=== PATIENT | male | born 1955 | race Caucasian/White ===

== ENCOUNTER 2019-04-11 09:30 | Inpatient (IN) | payer BC, OTHER ==
--- NOTE | 2019-04-11 09:44 | PDOC ---
Attending Attestation - Resident Resident Name: Kristopher Madden - ED Attending Attestation I have performed the following: I have examined & evaluated the patient, The case was reviewed & discussed with the resident, I agree w/resident's findings & plan, Exceptions are as noted - HPI HPI: 04/11/19 09:49 63M hx of HTN presents with a complaint of fatigue. Pt complainses of feelign lightheaded, skipped dinner last night, but had a banana and coffee this morning. Pt endorses feeling diaphoretic this morning. denies any headache, vision changes, cp, sob, palppitations, n/v, abd pain, back pain, fever/chills, cough, diarrhea, melena. states he has been working alot recently. denies allergies social: social etoh, denies recreational drugs 04/11/19 10:24 GENERAL: The patient is awake, somnolent, but easily arousable, Nontoxic - in no acute distress. HEAD: Normocephalic, atraumatic. EYES: extraocular movements intact, pupils approx 3mm reactive to light, sclera anicteric, pale. ENT: Normal voice, dry mucous membranes. NECK: Normal range of motion, supple LUNGS: Breath sounds equal, clear to auscultation bilaterally. No wheezes, no rhonchi, no rales. HEART: tachycardic, regular ABDOMEN: Soft, nontender, No guarding, no rebound. No CVA tenderness EXTREMITIES: Normal range of motion, no edema. radial & dp pulses palpable NEUROLOGICAL: No facial assymetry, Normal speech, PSYCH: Normal mood, normal affect. SKIN: Warm, Dry, normal turgor, consider possible arrythmia, acs, anemia, metabolic derangement upon arrival pts bgm was checked andw as normal ekg noted for svt vs aflutter, bp stable here with good perfusion although pt seems somnolent - by ext and bp, perfusing well, suspect his somenolence may atleast be due to poor sleep hygene pt appears dry,will give pt fluids to see if his HR responds - if not will give adenosine - Physicial Exam PE: 04/11/19 11:01 see above - Critical Care Time Total Critical Care Time: 35 Critical Care Statement: The care of this patient involved high complexity decision making to prevent further life threatening deterioration of the patient 's condition and/or to evaluate & treat vital organ system(s) failure or risk of failure. - Medical Decision Making 04/11/19 10:59 pt had no response to 1L of NS - still tachy at 160. We gave 6mg of adenosine without any sinus pause - however his HR gradually began to slow down to 110 abnd fluctuated to 160s, flutter waves were visible. pt was given 20mg of diltiazem with improvement of rate down to the 90s pts bp stable Heart Score/ECG Review - ECG Impressions Comment:: 04/11/19 11:01 Twelve-lead EKG was performed and reviewed by me. ekg originaly performed at 10:04am Rate of 160 narrow qrs atrial flutter vs svt Twelve-lead EKG was performed and reviewed by me. flutter waves present with varialb lock rate of 97 impresion: atrial flutter
[2019-04-11] MEDS ORDERED: SODIUM CHLORIDE 1,000 ML IV ONE ×2 (09:58→10:14)
[2019-04-11 10:22] LABS: BASO % 0.5 % (0-2.0); EOS % 1.7 % (0-4.5); HEMOGLOBIN 16.8 GM/dl (11.7-16.9); LYMPH % 18.1 % (8-40); MCH 30.8 pg (25.7-33.7); MCHC 33.6 g/dl (32.0-35.9); MEAN CELL VOLUME 91.7 fl (80-96); MEAN PLT VOLUME 8.5 fl (7.5-11.1); MONO % 4.6 % (3.8-10.2); NEUT % 75.1 % (42.8-82.8); PLATELET COUNT 256 K/MM3 (134-434); RBC 5.46 M/mm3 (4.00-5.60); RDW 12.7 % (11.9-15.9); WHITE BLOOD COUNT 7.6 K/mm3 (4.0-10.8)
[2019-04-11 10:26] LABS: INR 1.15 (0.82-1.09); PROTHROMBIN TIME (PATIENT) 12.8 SEC (10.2-13.0)
[2019-04-11 10:32] LABS: ALBUMIN 3.5 g/dl (3.4-5.0); BILIRUBIN,TOTAL 1.4 mg/dl (0.2-1); CALCIUM 8.9 mg/dl (8.5-10); CREATININE 0.8 mg/dl (0.55-1.3); TOT PROT 6.3 g/dl (6.4-8.2)
[2019-04-11] MEDS ORDERED: ADENOSINE 6 MG/2 ML VIAL IVPUSH ONE ×2 (10:34→11:01)
[2019-04-11] MEDS ORDERED: dilTIAZem HCL 50 MG/10 ML - 10 ML VIAL ONE (10:49)
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
[2019-04-11] MEDS ORDERED: dilTIAZem HCL 50 MG/10 ML - 10 ML VIAL IVPUSH ONE (11:01)
[2019-04-11] MEDS ORDERED: dilTIAZem HCL 30 MG TABLET (FP) PO ONE (11:17)
[2019-04-11] MEDS ORDERED: APIXABAN 5 MG TABLET PO ONE (11:20)
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
[2019-04-11] MEDS ORDERED: dilTIAZem HCL 30 MG TABLET (FP) ONE (11:23)
[2019-04-11] MEDS ORDERED: SODIUM CHLORIDE 1,000 ML IV SCH (11:45)
[2019-04-11 13:36] VITALS: BMI 38.3
--- NOTE | 2019-04-11 15:13 | EKG ---
Test Reason : Blood Pressure : / mmHG Vent. Rate : 163 BPM Atrial Rate : 326 BPM P-R Int : 000 ms QRS Dur : 120 ms QT Int : 338 ms P-R-T Axes : 000 011 037 degrees QTc Int : 556 ms ATRIAL FLUTTER WITH 2 TO 1 BLOCK and PVCs NON-SPECIFIC INTRA-VENTRICULAR CONDUCTION DELAY ABNORMAL ECG NO PREVIOUS ECGS AVAILABLE Confirmed by MD EDUARDO, YAZMIN ([id number]) on 04/11/2019 3:13:13 PM Referred By: PEGGY Confirmed By:YAZMIN CLARK MD
[2019-04-11 16:04] LABS: ALBUMIN 3.2 g/dl (3.4-5.0); BILIRUBIN,TOTAL 0.9 mg/dl (0.2-1); CALCIUM 8.2 mg/dl (8.5-10); CREATININE 0.8 mg/dl (0.55-1.3); POTASSIUM 3.6 mmol/L (3.5-5.1); TOT PROT 5.6 g/dl (6.4-8.2)
[2019-04-11] MEDS: dilTIAZem HCL 30 MG TABLET (FP) PO SCH ×2 (17:38→23:34)
[2019-04-11] MEDS ORDERED: POTASSIUM CHLORIDE TABS 20 MEQ TABLET.ER (FP) PO ONE (18:52)
[2019-04-11] MEDS: APIXABAN 5 MG TABLET PO SCH (21:35)
[2019-04-11] MEDS ORDERED: HEPARIN NA (PORCINE) 5,000 UNITS/ML 1ML VIAL SQ SCH (22:00)
[2019-04-12] MEDS: dilTIAZem HCL 30 MG TABLET (FP) PO SCH (06:23)
--- NOTE | 2019-04-12 07:29 | CON.CARD ---
Consult Consult Specialty:: Cardiology Referred by:: Dr. Mcgee Reason for Consultation:: New onset aflutter - History of Present Illness Chief Complaint: Lightheaded History of Present Illness: 63M pmh HTN on Hyzaar presented to ER w/ fatigue and lightheadedness. Found to be in rapid aflutter. No CP, no sob, no palps. No pleuritic CP No fever or recent illness No recent travel. Slowed w IV Cardizem, now in NSR. 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: No: Alzheimer's, CVA, Dementia, Migraine, Multiple Sclerosis, Peripheral Neuropathy, Parkinson's, Seizure, Syncope, TIA, Vertigo, Other Cardio/Vascular: Yes: HTN Pulmonary: No: Asthma, Bronchitis, Cancer, COPD, O2 Dependent, Pneumonia, Previously Intubated, Pulmonary Embolus, Pulmonary Fibrosis, Sleep Apnea, Other Gastrointestinal: No: Ascites, Cancer, Constipation, Crohn's Disease, Diverticulitis, Diverticulosis, Esophageal Varices, Gastritis, GERD, GI Bleed, Hemorrhoids, Hiatal Hernia, Inflamatory Bowel Disease, Irritable Bowel Disease, Pancreatitis, Peptic Ulcer Disease, Ulcerative Colitis, Other Hepatobiliary: No: Cirrhosis, Cholelithiasis, Cholecystitis, Choledocholithiasis , Hepatitis A, Hepatitis B, Hepatitis C, Other Renal/: No: Renal Failure, Renal Inusuff, BPH, Cancer, Hematuria, Hemodialysis , Neurogenic Bladder, Renal Calculi, UTI, Other Heme/Onc: No: Anemia, B12 Deficiency, Bleeding Disorder, Cancer, Current Chemotherapy, Current Radiation Therapy, Hemochromatosis, Hypercoaguable State, Myeloproliferative Synd, Sickle Cell Disease, Sickle Cell Trait, Thrombocytopenia, Other Infectious Disease: No: AIDS, C-Diff, Herpes Zoster, HIV, MRSA, STD's, Tuberculosis, VREF, Other Psych: No: Addictions, Anxiety, Bipolar, Depression, Panic, Psychosis, Schizophrenia, Other Musculoskeletal: Yes: Other (sports injury to left knee). No: Bursitis, Chronic low back pain, Hemiparesis, Hemiplegia, Osteoarthritis, Paraplegia Rheumatology: No: Fibromyalgia, Gout, Lupus, Rheumatoid Arthritis, Sarcoidosis, Vasculitis, Other Endocrine: No: Zia's Disease, Milly's Disease, Diabetes Insipidus, Diabetes Mellitus, Hyperparathyroidism, Hyperthyroidism, Hypothyroidism, Osteopenia, SIADH, Other Dermatology: No: Basal Cell, Cellulitis, Eczema, Melanoma, Psoriasis, Squamous Cell, Other - Past Surgical History Past Surgical History: Yes: Appendectomy - Alcohol/Substance Use Hx Alcohol Use: Yes (occasional) - Smoking History Smoking history: Never smoked Have you smoked in the past 12 months: No Aproximately how many cigarettes per day: 0 - Social History Usual Living Arrangement: With Spouse 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 History of Recent Travel: No Home Medications - Allergies Allergies/Adverse Reactions: Allergies Allergy/AdvReac Type Severity Reaction Status Date / Time No Known Allergies Allergy Verified 04/11/19 09:32 - Home Medications Home Medications: Ambulatory Orders Losartan/Hydrochlorothiazide [Losartan-Hctz 50-12.5 mg Tab] 1 each PO DAILY Review of Systems - Review of Systems Constitutional: reports: No Symptoms Eyes: reports: No Symptoms HENT: reports: No Symptoms Neck: reports: No Symptoms Cardiovascular: reports: No Symptoms Respiratory: reports: No Symptoms Gastrointestinal: reports: No Symptoms Genitourinary: reports: No Symptoms Breasts: reports: No Symptoms Reported Musculoskeletal: reports: No Symptoms Integumentary: reports: No Symptoms Neurological: reports: No Symptoms Endocrine: reports: No Symptoms Hematology/Lymphatic: reports: No Symptoms Psychiatric: reports: No Symptoms - Risk Factors Known Risk Factors: Yes: Hypertension Vital Signs: Vital Signs Temperature 98.3 F 04/12/19 05:00 Pulse Rate 68 04/12/19 05:00 Respiratory Rate 18 04/12/19 05:00 Blood Pressure 143/89 04/12/19 05:00 O2 Sat by Pulse Oximetry (%) 97 04/12/19 06:44 Constitutional: Yes: No Distress, Calm Eyes: Yes: Conjunctiva Clear, EOM Intact Respiratory: Yes: CTA Bilaterally Gastrointestinal: Yes: Soft Cardiovascular: Yes: Regular Rate and Rhythm JVD: No Carotid Bruit: No Heart Sounds: Yes: S1, S2 (rrr, no murmurs) Edema: Yes Edema: LLE: 2+ (chronic ), RLE: Trace Neurological: Yes: Alert, Oriented ...Motor Strength: WNL - Other Data Labs, Other Data: CBC, BMP 04/11/19 10:10 04/11/19 15:30 INR, PTT INR 1.15 (0.82-1.09) 04/11/19 10:10 Troponin, BNP 04/11/19 04/11/19 04/11/19 10:10 15:30 21:15 Troponin I 0.03 < 0.03 < 0.03 Troponin, BNP 04/11/19 04/11/19 04/11/19 10:10 15:30 21:15 Troponin I 0.03 < 0.03 < 0.03 Laboratory Tests 04/11/19 04/11/19 04/11/19 10:10 10:10 15:30 WBC 7.6 Hgb 16.8 Plt Count 256 INR 1.15 Sodium Potassium Creatinine Creatine Kinase 45 Troponin I 04/11/19 04/11/19 04/11/19 15:30 15:30 21:15 WBC Hgb Plt Count INR Sodium 141 Potassium 3.6 Creatinine 0.8 Creatine Kinase Troponin I < 0.03 < 0.03 04/11/19 21:15 WBC Hgb Plt Count INR Sodium Potassium Creatinine Creatine Kinase 47 Troponin I TSH WNL Initial ECG reviewed, Aflutter, rapid V response, now in NSR on tele w/ rare VPCs Echo: Pending Imaging - Results X-ray: Report Reviewed EKG: Image Reviewed Assessment/Plan IMP: New onset AFLUTTER, now reverted to NSR [id number] score = 1 (HTN) Chronic LLE edema REC: 1. Cont Eliquis. Either full AC or ASA may be used in this case. As he has no contraindications to full AC, will continue Eliquis 5mg BID. Patient to check with his pharmacy if covered for outpatient use. 2. Switch to Cardizem CD 120mg daily, cont tele. 3. Echo in AM, if WNL and no rhythm issues ok for d/c tomorrow afternoon w/ cardio f/u in 1-2 weeks 4. LLE edema is chronic and without change per patient. He does report a remote hx DVT. Will check LE venous duplex.
[2019-04-12 08:28] LABS: BASO % 0.9 % (0-2.0); EOS % 2.9 % (0-4.5); HEMATOCRIT 44.8 % (35.4-49); HEMOGLOBIN 14.9 GM/dl (11.7-16.9); LYMPH % 26.9 % (8-40); MCH 30.8 pg (25.7-33.7); MCHC 33.4 g/dl (32.0-35.9); MEAN CELL VOLUME 92.2 fl (80-96); MEAN PLT VOLUME 8.8 fl (7.5-11.1); MONO % 5.3 % (3.8-10.2); PLATELET COUNT 209 K/MM3 (134-434); RBC 4.86 M/mm3 (4.00-5.60); RDW 12.8 % (11.9-15.9)
[2019-04-12 08:42] LABS: ALBUMIN 3.3 g/dl (3.4-5.0); BILIRUBIN,TOTAL 1.5 mg/dl (0.2-1); CALCIUM 8.6 mg/dl (8.5-10); CREATININE 0.6 mg/dl (0.55-1.3); MAGNESIUM 1.9 mg/dL (1.8-2.4); POTASSIUM 4.7 mmol/L (3.5-5.1); TOT PROT 5.7 g/dl (6.4-8.2)
--- NOTE | 2019-04-12 10:24 | PN ---
Physical Exam: SUBJECTIVE: Patient seen and examined. Pt denies cp, sob or palpitations. OBJECTIVE: Vital Signs Period Temp Pulse Resp BP Sys/Plummer Pulse Ox Last 24 Hr 97.3 F-98.3 F 65-110 16-24 109-161/62-95 96-99 GENERAL: The patient is awake, alert, and fully oriented, in no acute distress. HEAD: Normal with no signs of trauma. EYES: PERRL, extraocular movements intact, sclera anicteric, conjunctiva clear. No ptosis. ENT: Ears normal, nares patent, oropharynx clear without exudates, moist mucous membranes. NECK: Trachea midline, full range of motion, supple. LUNGS: Breath sounds equal, clear to auscultation bilaterally, no wheezes, no crackles, no accessory muscle use. HEART: Regular rate and rhythm, S1, S2 without murmur, rub or gallop. ABDOMEN: Soft, nontender, nondistended, normoactive bowel sounds, no guarding, no rebound, no hepatosplenomegaly, no masses. EXTREMITIES: 2+ pulses, warm, well-perfused, bilateral lower ext edema, Lt>Rt NEUROLOGICAL: Cranial nerves II through XII grossly intact. Normal speech, gait not observed. PSYCH: Normal mood, normal affect. SKIN: Warm, dry, normal turgor, no rashes or lesions noted Laboratory Results - last 24 hr 04/11/19 04/11/19 04/11/19 10:10 10:10 10:10 WBC 7.6 RBC 5.46 Hgb 16.8 Hct 50.0 H MCV 91.7 MCH 30.8 MCHC 33.6 RDW 12.7 Plt Count 256 MPV 8.5 Absolute Neuts (auto) 5.7 Neutrophils % 75.1 Lymphocytes % 18.1 Monocytes % 4.6 Eosinophils % 1.7 Basophils % 0.5 PT with INR INR Sodium 141 Potassium 4.0 Chloride 105 Carbon Dioxide 29 Anion Gap 7 L BUN 19.0 H Creatinine 0.8 Est GFR (CKD-EPI)AfAm 110.96 Est GFR (CKD-EPI)NonAf 95.74 Random Glucose 106 Calcium 8.9 Magnesium Total Bilirubin 1.4 H AST 23 ALT 27 Alkaline Phosphatase 65 Creatine Kinase 57 Troponin I 0.03 Total Protein 6.3 L Albumin 3.5 TSH 0.38 04/11/19 04/11/19 04/11/19 10:10 10:10 15:30 WBC RBC Hgb Hct MCV MCH MCHC RDW Plt Count MPV Absolute Neuts (auto) Neutrophils % Lymphocytes % Monocytes % Eosinophils % Basophils % PT with INR 12.8 INR 1.15 Sodium Potassium Chloride Carbon Dioxide Anion Gap BUN Creatinine Est GFR (CKD-EPI)AfAm Est GFR (CKD-EPI)NonAf Random Glucose Calcium Magnesium 2.0 Total Bilirubin AST ALT Alkaline Phosphatase Creatine Kinase 45 Troponin I Total Protein Albumin TSH 04/11/19 04/11/19 04/11/19 15:30 15:30 21:15 WBC RBC Hgb Hct MCV MCH MCHC RDW Plt Count MPV Absolute Neuts (auto) Neutrophils % Lymphocytes % Monocytes % Eosinophils % Basophils % PT with INR INR Sodium 141 Potassium 3.6 Chloride 107 Carbon Dioxide 29 Anion Gap 5 L BUN 14.0 Creatinine 0.8 Est GFR (CKD-EPI)AfAm 110.96 Est GFR (CKD-EPI)NonAf 95.74 Random Glucose 130 H Calcium 8.2 L Magnesium Total Bilirubin 0.9 AST 21 ALT 26 Alkaline Phosphatase 53 D Creatine Kinase Troponin I < 0.03 < 0.03 Total Protein 5.6 L Albumin 3.2 L TSH 04/11/19 04/12/19 04/12/19 21:15 06:00 06:00 WBC 6.0 RBC 4.86 Hgb 14.9 Hct 44.8 MCV 92.2 MCH 30.8 MCHC 33.4 RDW 12.8 Plt Count 209 MPV 8.8 Absolute Neuts (auto) 3.8 Neutrophils % 64.0 Lymphocytes % 26.9 D Monocytes % 5.3 Eosinophils % 2.9 Basophils % 0.9 PT with INR INR Sodium 140 Potassium 4.7 Chloride 107 Carbon Dioxide 27 Anion Gap 6 L BUN 14.0 Creatinine 0.6 Est GFR (CKD-EPI)AfAm 124.89 Est GFR (CKD-EPI)NonAf 107.76 Random Glucose 88 Calcium 8.6 Magnesium 1.9 Total Bilirubin 1.5 H AST 29 ALT 27 Alkaline Phosphatase 51 Creatine Kinase 47 Troponin I Total Protein 5.7 L Albumin 3.3 L TSH Active Medications Generic Name Dose Route Start Last Admin Trade Name Freq PRN Reason Stop Dose Admin Apixaban 5 mg 04/11/19 22:00 04/11/19 21:35 Eliquis - PO 5 mg BID MINNIE Administration Diltiazem HCl 120 mg 04/12/19 10:00 Cardizem Cd - PO DAILY MINNIE Sodium Chloride 1,000 mls @ 50 mls/hr 04/11/19 11:45 04/11/19 12:30 Normal Saline - IV 04/12/19 11:41 50 mls/hr ASDIR MINNIE Administration CxR: No acute pathology EKG: A- Flutter, rapid ventricular rate ASSESSMENT/PLAN: 63M hx of HTN ,left leg DVT ( was on Eliquis for 6 months now off, after shoulder sx 3 yrs ago), and chronic lower ext edema who presents with a complaint of fatigue and lightheaded. Admitted with Rapid Flutter. *Atrial flutter with rapid ventricular response- Now converted to SR -Presumed new onset Aflutter - s/p adenosine/ Cardizem IVP - will cont on Cardizem PO and started on Eliquis - cardiology input appreciated - Echo ordered - tele monitoring - 9 beats of NSVT- asymptomatic - mg, K - wnl -TSH- wnl - Trop neg x3, ACS ruled out * Bilateral DVT - reports hx of LLE DVT and was on Eliquis for 6 months , post shoulder sx - will cont on Eliquis , dose adjusted for DVT ( Eliquis 10mgBID x7 days then 5mg BID) -hematology w/u for DVT ordered -rec out pt hematology followup *HTN - BP mildly elevated - ordered home dose Losartan - will cont on Cardizem - will monitor BP closely * Abnormal T.B -LFT's normal - asymptomatic *FEN cardiac diet monitor electrolytes Visit type - Emergency Visit Emergency Visit: Yes ED Registration Date: 04/11/19 Care time: The patient presented to the Emergency Department on the above date and was hospitalized for further evaluation of their emergent condition. - New Patient This patient is new to me today: Yes Date on this admission: 04/12/19 - Critical Care Critical Care patient: No
[2019-04-12] MEDS: APIXABAN 5 MG TABLET PO SCH ×2 (10:31→21:16)
[2019-04-12] MEDS: LOSARTAN POTASSIUM 50 MG TABLET (FP) PO SCH (11:30)
[2019-04-12] MEDS ORDERED: APIXABAN 5 MG TABLET PO ONE (11:45)
--- NOTE | 2019-04-12 17:07 | EKG ---
Test Reason : Blood Pressure : / mmHG Vent. Rate : 097 BPM Atrial Rate : 340 BPM P-R Int : 000 ms QRS Dur : 130 ms QT Int : 344 ms P-R-T Axes : 082 001 074 degrees QTc Int : 436 ms ATRIAL FLUTTER WITH VARIABLE A-V BLOCK WITH PREMATURE VENTRICULAR OR ABERRANTLY CONDUCTED COMPLEXES NON-SPECIFIC INTRA-VENTRICULAR CONDUCTION BLOCK ABNORMAL ECG WHEN COMPARED WITH ECG OF 11-APR-2019 10:04, PREVIOUS ECG HAS UNDETERMINED RHYTHM, NEEDS REVIEW T WAVE INVERSION NO LONGER EVIDENT IN INFERIOR LEADS Confirmed by MD EDUARDO, YAZMIN ([id number]) on 04/12/2019 5:07:40 PM Referred By: PEGGY Confirmed By:YAZMIN CLARK MD
[2019-04-13] MEDS: LOSARTAN POTASSIUM 50 MG TABLET (FP) PO SCH ×2 (06:32→10:15)
[2019-04-13 08:01] LABS: HEMATOCRIT 45.8 % (35.4-49); HEMOGLOBIN 15.2 GM/dl (11.7-16.9); MCH 30.4 pg (25.7-33.7); MCHC 33.2 g/dl (32.0-35.9); MEAN CELL VOLUME 91.5 fl (80-96); MEAN PLT VOLUME 8.5 fl (7.5-11.1); PLATELET COUNT 215 K/MM3 (134-434); RDW 12.5 % (11.9-15.9); WHITE BLOOD COUNT 6.8 K/mm3 (4.0-10.8)
[2019-04-13] MEDS: APIXABAN 5 MG TABLET PO SCH ×2 (10:21→20:59)
--- NOTE | 2019-04-13 11:59 | EKG ---
Test Reason : Blood Pressure : / mmHG Vent. Rate : 061 BPM Atrial Rate : 061 BPM P-R Int : 176 ms QRS Dur : 104 ms QT Int : 428 ms P-R-T Axes : 047 -18 003 degrees QTc Int : 430 ms NORMAL SINUS RHYTHM POSSIBLE LEFT ATRIAL ENLARGEMENT INFERIOR INFARCT , AGE UNDETERMINED CANNOT RULE OUT ANTERIOR INFARCT , AGE UNDETERMINED ABNORMAL ECG WHEN COMPARED WITH ECG OF 11-APR-2019 10:45, SINUS RHYTHM HAS REPLACED ATRIAL FLUTTER VENT. RATE HAS DECREASED Confirmed by LENNY MOTLEY MD ([id number]) on 04/13/2019 11:59:27 AM Referred By: MALISSA YORK Confirmed By:LENNY MOTLEY MD
[2019-04-13] MEDS ORDERED: hydrALAZINE HCL 20 MG/ML VIAL IVPUSH ONE ×2 (12:12→17:10)
--- NOTE | 2019-04-13 12:40 | PN ---
Physical Exam: SUBJECTIVE: Patient seen and examined at bedside. Left leg is chronically larger than right leg, the result of two fractures in high school. Denies leg pain, denies calf tenderness. OBJECTIVE: Vital Signs Period Temp Pulse Resp BP Sys/Plummer Pulse Ox Last 24 Hr 97.4 F-98.0 F 52-73 16-20 139-187/66-108 94-98 GENERAL: The patient is awake, alert, and fully oriented, in no acute distress. HEAD: Normal with no signs of trauma. EYES: PERRL, extraocular movements intact, sclera anicteric, conjunctiva clear. No ptosis. ENT: Ears normal, nares patent, oropharynx clear without exudates, moist mucous membranes. LUNGS: Breath sounds equal, clear to auscultation bilaterally, no wheezes, no crackles, no accessory muscle use. HEART: Regular rate and rhythm, S1, S2 ABDOMEN: Soft, nontender, nondistended LOWER EXTREMITIES: 2+ pulses, warm, well-perfused; left leg is larger than right leg, no calf tenderness, trace bilateral edema NEUROLOGICAL: Cranial nerves II through XII grossly intact. Normal speech, steady gait. Laboratory Results - last 24 hr 04/13/19 04/13/19 07:12 07:12 WBC 6.8 RBC 5.00 Hgb 15.2 Hct 45.8 MCV 91.5 MCH 30.4 MCHC 33.2 RDW 12.5 Plt Count 215 MPV 8.5 Troponin I 0.03 Active Medications Generic Name Dose Route Start Last Admin Trade Name Freq PRN Reason Stop Dose Admin Apixaban 10 mg 04/12/19 11:12 04/13/19 10:21 Eliquis - PO 04/18/19 23:00 10 mg BID MINNIE Administration Diltiazem HCl 120 mg 04/12/19 10:00 04/13/19 10:13 Cardizem Cd - PO Not Given DAILY MINNIE Hydralazine HCl 10 mg 04/13/19 13:00 Apresoline - PO 04/13/19 13:01 ONCE ONE Losartan Potassium 50 mg 04/12/19 11:00 04/13/19 10:15 Cozaar - PO Not Given DAILY MINNIE Additional HPI 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 Went to bakery, picked up rolls and coffee, and drove to his mother's house to do a day of cleaning up. He recalls entering the house and feeling sweaty and dizzy. That is the last thing he remembers until he woke up on [facility] floor in Room 221. He has no recollection of his friend bringing him to the hospital, no recollection of being in the ED. He denies experiencing chest pain, palpitations, SOB, SENA. He exercises 3-4 x per week, 30 minutes on bike and light weights. No decrease in exercise tolerance. No orthopnea or lower extremity edema. No calf pain or tenderness. Three years ago diagnosed with DVT. Treated by Dr. Sims, was on Eliquis x 6 months and believes had an ultrasound that showed DVT had resolved. PCP: Temo Arora [phone] (sees regularly) ASSESSMENT/PLAN 63 year-old male with a PMH significant for HTN. Admitted for aflutter with RVR , hypertensioin, and bilateral DVTs. Aflutter with RVR --ECG on admission showed aflutter @ 163bpm --EGC today back in sinus rhythm, on cardizem CD 120mg; rate dipped a few times to 50s --[id number] score 3, moderate to high risk; continue Eliquis Hypertension --BP running high --continue losartan; add chlorthalidone --hydralazine IVP 10mg x 1 and PO 10mg x 1 Bilateral DVTs --h/o DVT x 3 years ago --consult requested for vascular Dr. Sims --consult requested for heme Dr. Shari PAT Fluids: PO intake adequate Electrolytes: replete as indicated Nutrition: low sodium DVT prophylaxis: on Eliquis Dispo: continue to require inpatient care. Full code. Visit type - Emergency Visit Emergency Visit: Yes ED Registration Date: 04/11/19 Care time: The patient presented to the Emergency Department on the above date and was hospitalized for further evaluation of their emergent condition. - New Patient This patient is new to me today: Yes Date on this admission: 04/13/19 - Critical Care Critical Care patient: No
[2019-04-13] MEDS ORDERED: hydrALAZINE HCL 10 MG TABLET PO ONE (13:00)
[2019-04-13] MEDS: CHLORTHALIDONE 25 MG TABLET PO ONE ×2 (13:48→13:53)
--- NOTE | 2019-04-13 15:32 | ECHO ---
Name: JULIANNA AVERY Exam:Adult Echocardiogram Study Date: 04/13/2019 02:23 PM Age: 63 yrs Reason For Study: A-Fib Height: 70 in Weight: 276 lb BSA: 2.4 m2 MMode/2D Measurements & Calculations IVSd: 1.3 cm Ao root diam: 3.4 cm LVIDd: 5.6 cm LA dimension: 4.2 cm LVIDs: 3.6 cm LVPWd: 1.2 cm EDV(Teich): 151.5 ml LVOT diam: 2.0 cm ESV(Teich): 53.9 ml Doppler Measurements & Calculations MV E max neymar: 79.8 cm/sec MV A max neymar: 84.6 cm/sec MV dec slope: 503.6 cm/sec2 MV E/A: 0.94 Ao V2 max: 112.5 cm/sec LV V1 max P.4 mmHg Ao max P.1 mmHg LV V1 max: 91.8 cm/sec JAGDISH(V,D): 2.6 cm2 PA V2 max: 120.4 cm/sec PA max P.8 mmHg Procedure A complete two-dimensional transthoracic echocardiogram was performed (2D, M-mode, Doppler and color flow Doppler). Left Ventricle The left ventricle is normal in size. There is mild concentric left ventricular hypertrophy. Left cristiana tricular systolic function is normal. Ejection Fraction = 60-65%. No regional wall motion abnormalities noted. Right Ventricle The right ventricle is normal size. The right ventricular systolic function is normal. Atria The left atrium is mildly dilated. Right atrial size is normal. Mitral Valve There is mild mitral annular calcification. There is mild mitral regurgitation. Tricuspid Valve The tricuspid valve is normal in structure and function. There is mild tricuspid regurgitation. Aortic Valve The aortic valve is normal in structure and function. No aortic regurgitation is present. Pulmonic Valve The pulmonic valve is not well visualized. Great Vessels The aortic root is normal size. Pericardium/Pleura There is no pericardial effusion. Interpretation Summary The left ventricle is normal in size. There is mild concentric left ventricular hypertrophy. Left ventricular systolic function is normal. No regional wall motion abnormalities noted. Ejection Fraction = 60-65%. The right ventricular systolic function is normal. The left atrium is mildly dilated. Right atrial size is normal. There is mild mitral annular calcification. There is mild mitral regurgitation. There is mild tricuspid regurgitation. There is no pericardial effusion. Bert Pickett MD 04/13/2019 03:32 PM
[2019-04-13] MEDS ORDERED: ACETAMINOPHEN 325 MG TABLET (FP) PO PRN (17:08)
[2019-04-13] MEDS ORDERED: ACETAMINOPHEN 325 MG TABLET (FP) ONE (17:09)
[2019-04-13] MEDS ORDERED: hydrALAZINE HCL 10 MG TABLET PO SCH (18:00)
[2019-04-13] MEDS ORDERED: VALSARTAN 160 MG TABLET (UD) PO ONE (18:40)
--- NOTE | 2019-04-13 20:41 | CONSULT ---
Consult Consult Specialty:: heme Referred by:: arthur Reason for Consultation:: hypercoag state - History of Present Illness Chief Complaint: fatigue History of Present Illness: 63 yom adm w few days fatigue and found to be in A flutter. noted w LLE>RLE and had doppler which evidences bilat LE dvts, chronicity not reported. Pt notes that lle is always larger than right related to remote sports injury. in addn, he has h/o le dvt approx 3 yrs ago in setting of ambulatory shoulder surg he was managed per Dr Sims and reports taking eliquis for at least 3 mos. no known hypercoag w/u at time. denies any resp sxs. he has not had any recent change in activity, procedures, long car/air travel. he reports delib wt loss approx 12# over past few mos - Past Medical History HEADING PINNER: No: Alzheimer's, CVA, Dementia, Migraine, Multiple Sclerosis, Peripheral Neuropathy, Parkinson's, Seizure, Syncope, TIA, Vertigo, Other Cardio/Vascular: Yes: Deep Vein Thrombosis, HTN Pulmonary: No: Asthma, Bronchitis, Cancer, COPD, O2 Dependent, Pneumonia, Previously Intubated, Pulmonary Embolus, Pulmonary Fibrosis, Sleep Apnea, Other Gastrointestinal: No: Ascites, Cancer, Constipation, Crohn's Disease, Diverticulitis, Diverticulosis, Esophageal Varices, Gastritis, GERD, GI Bleed, Hemorrhoids, Hiatal Hernia, Inflamatory Bowel Disease, Irritable Bowel Disease, Pancreatitis, Peptic Ulcer Disease, Ulcerative Colitis, Other Hepatobiliary: No: Cirrhosis, Cholelithiasis, Cholecystitis, Choledocholithiasis , Hepatitis A, Hepatitis B, Hepatitis C, Other Renal/: No: Renal Failure, Renal Inusuff, BPH, Cancer, Hematuria, Hemodialysis , Neurogenic Bladder, Renal Calculi, UTI, Other Infectious Disease: No: AIDS, C-Diff, Herpes Zoster, HIV, MRSA, STD's, Tuberculosis, VREF, Other Psych: No: Addictions, Anxiety, Bipolar, Depression, Panic, Psychosis, Schizophrenia, Other Musculoskeletal: Yes: Other (sports injury to left knee). No: Bursitis, Chronic low back pain, Hemiparesis, Hemiplegia, Osteoarthritis, Paraplegia Rheumatology: No: Fibromyalgia, Gout, Lupus, Rheumatoid Arthritis, Sarcoidosis, Vasculitis, Other Endocrine: No: Zia's Disease, Milly's Disease, Diabetes Insipidus, Diabetes Mellitus, Hyperparathyroidism, Hyperthyroidism, Hypothyroidism, Osteopenia, SIADH, Other Dermatology: No: Basal Cell, Cellulitis, Eczema, Melanoma, Psoriasis, Squamous Cell, Other - Past Surgical History Past Surgical History: Yes: Appendectomy - Alcohol/Substance Use Hx Alcohol Use: Yes (occasional) - Smoking History Smoking history: Never smoked Have you smoked in the past 12 months: No Aproximately how many cigarettes per day: 0 - Social History Usual Living Arrangement: With Spouse Occupation: [employer] History of Recent Travel: No Home Medications - Allergies Allergies/Adverse Reactions: Allergies Allergy/AdvReac Type Severity Reaction Status Date / Time No Known Allergies Allergy Verified 04/11/19 09:32 - Home Medications Home Medications: Ambulatory Orders Losartan/Hydrochlorothiazide [Losartan-Hctz 50-12.5 mg Tab] 1 each PO DAILY Family Disease History - Family Disease History Family Disease History: Diabetes: Mother, Other: Father (dvt bkd mult med issues ) Physical Exam Vital Signs: Vital Signs Temperature 98.2 F 04/13/19 14:06 Pulse Rate 68 04/13/19 18:05 Respiratory Rate 16 04/13/19 18:05 Blood Pressure 169/83 04/13/19 18:05 O2 Sat by Pulse Oximetry (%) 100 04/13/19 14:06 Constitutional: Yes: No Distress HENT: Yes: WNL Neck: Yes: WNL, Supple Cardiovascular: Yes: Regular Rate and Rhythm Respiratory: Yes: Other (distant bs) Gastrointestinal: Yes: Normal Bowel Sounds, Soft, Abdomen, Obese Extremities: Yes: Other (LLE>>RLE ,NT, non-pitting) Labs: CBC, BMP 04/13/19 07:12 04/12/19 06:00 Assessment/Plan recurrent dvt, unknown chronicity; await input per vasc. Pt reports that dopplers from prior dvt were followed to resolution...? cont a/c hypercoag lab w/u initiated; pursue age-appro screening - notes he is due for c- scope 3mos ago anticipate f/u in office would consider indef a/c indept of lab results, presuming new, unprovoked thromboses occurred at some point btw last duplex and present. Obesity may be his risk factor
--- NOTE | 2019-04-13 20:57 | PN ---
Progress Note (short form) - Note Progress Note: addendum pls add on PTT to his admission labs
[2019-04-14 08:01] LABS: BASO % 0.4 % (0-2.0); EOS % 0.7 % (0-4.5); HEMATOCRIT 49.4 % (35.4-49); HEMOGLOBIN 16.6 GM/dl (11.7-16.9); MCH 30.8 pg (25.7-33.7); MCHC 33.6 g/dl (32.0-35.9); MEAN CELL VOLUME 91.8 fl (80-96); MEAN PLT VOLUME 8.5 fl (7.5-11.1); MONO % 5.8 % (3.8-10.2); NEUT % 79.1 % (42.8-82.8); PLATELET COUNT 225 K/MM3 (134-434); RBC 5.39 M/mm3 (4.00-5.60); RDW 12.4 % (11.9-15.9)
[2019-04-14 08:09] LABS: ALBUMIN 3.6 g/dl (3.4-5.0); BILIRUBIN,TOTAL 1.9 mg/dl (0.2-1); CALCIUM 9.2 mg/dl (8.5-10); CREATININE 0.6 mg/dl (0.55-1.3); POTASSIUM 4.3 mmol/L (3.5-5.1); TOT PROT 6.5 g/dl (6.4-8.2)
[2019-04-14] MEDS: APIXABAN 5 MG TABLET PO SCH (09:16)
[2019-04-14] MEDS ORDERED: VALSARTAN 160 MG TABLET (UD) PO SCH (10:00)
[2019-04-14] MEDS ORDERED: CHLORTHALIDONE 25 MG TABLET PO SCH (10:00)
--- NOTE | 2019-04-14 11:56 | CONS ---
DATE OF CONSULTATION: 04/14/2019 ADMITTING DIAGNOSIS: Bilateral deep vein thrombosis. HISTORY: This is a patient well known to me. A 63-year-old who had history of DVT in the past. The patient was on Eliquis. Continued for 1 year and in 2017 it was discontinued since the patient had no further DVT. Has been doing well but now admitted recently with bilateral DVT and acute atrial fibrillation onset. Patient apparently was working and developed profuse sweating and brought into the emergency room during which time atrial fibrillation was diagnosed and also the Doppler studies of the lower extremity revealed bilateral DVT. Patient did not have any long-distance travelling, no squatting for a long period of time, or any particular causative factor for causing the DVT. Patient has got history of hypertension and no other major medical problems. 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 Lost some weight recently with active exercise. EXAMINATION: General: Patient is slightly overweight but, otherwise, in good shape. Vital Signs: Heart rate at the present time is normal, 62 regular. Extremities: Bilateral lower extremities show mild swelling. Patient also has got flat feet. Abdomen: Otherwise, abdomen is slightly obese, and there are no masses felt. Doppler studies reveal bilateral DVT. EKG at the time of admission showed atrial fibrillation. An echocardiogram was done. Apparently, the CAT scan of the chest was not performed. Present thinking is the patient could have had a pulmonary embolism causing the atrial fibrillation probably secondary to the DVT in the lower extremity. The patient is not on Eliquis. All the bloods have been drawn for blood dyscrasias, which I agree with, so the patient could now be discharged on Eliquis prison. Continue with support stockings. Follow up with me at the [facility] for the findings on the blood tests. No acute treatment is necessary at the present time. ALEA TINSLEY M.D. [id number]
--- NOTE | 2019-04-14 13:18 | DS ---
Physical Exam: SUBJECTIVE: Patient seen and examined at bedside. Feeling well. Voices no complaints. Feels ready to go home. OBJECTIVE: Vital Signs Period Temp Pulse Resp BP Sys/Plummer Pulse Ox Last 24 Hr 97.6 F-98.2 F 62-72 16-20 139-176/76-114 97-100 PHYSICAL EXAM GENERAL: The patient is awake, alert, and fully oriented, in no acute distress. HEAD: Normal with no signs of trauma. EYES: PERRL, extraocular movements intact, sclera anicteric, conjunctiva clear. No ptosis. ENT: Ears normal, nares patent, oropharynx clear without exudates, moist mucous membranes. LUNGS: Breath sounds equal, clear to auscultation bilaterally, no wheezes, no crackles, no accessory muscle use. HEART: Regular rate and rhythm, S1, S2 ABDOMEN: Soft, nontender, nondistended LOWER EXTREMITIES: 2+ pulses, warm, well-perfused; left leg is larger than right leg, no calf tenderness, trace bilateral edema NEUROLOGICAL: Cranial nerves II through XII grossly intact. Normal speech, steady gait. LABS Laboratory Results - last 24 hr 04/13/19 04/14/19 04/14/19 17:55 07:20 07:20 WBC 8.0 RBC 5.39 Hgb 16.6 Hct 49.4 H MCV 91.8 MCH 30.8 MCHC 33.6 RDW 12.4 Plt Count 225 MPV 8.5 Absolute Neuts (auto) 6.3 Neutrophils % 79.1 D Lymphocytes % 14.0 D Monocytes % 5.8 Eosinophils % 0.7 Basophils % 0.4 PTT (Actin FS) Sodium 141 Potassium 4.3 Chloride 105 Carbon Dioxide 27 Anion Gap 9 BUN 10.0 Creatinine 0.6 Est GFR (CKD-EPI)AfAm 124.89 Est GFR (CKD-EPI)NonAf 107.76 Random Glucose 94 Calcium 9.2 Magnesium 2.0 Total Bilirubin 1.9 H AST 20 ALT 32 Alkaline Phosphatase 56 Creatine Kinase 65 Total Protein 6.5 Albumin 3.6 04/14/19 08:50 WBC RBC Hgb Hct MCV MCH MCHC RDW Plt Count MPV Absolute Neuts (auto) Neutrophils % Lymphocytes % Monocytes % Eosinophils % Basophils % PTT (Actin FS) 34.5 Sodium Potassium Chloride Carbon Dioxide Anion Gap BUN Creatinine Est GFR (CKD-EPI)AfAm Est GFR (CKD-EPI)NonAf Random Glucose Calcium Magnesium Total Bilirubin AST ALT Alkaline Phosphatase Creatine Kinase Total Protein Albumin HOSPITAL COURSE: Date of Admission:04/11/19 Date of Discharge: 04/14/19 Pre hospital visit 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 Went to bakery, picked up rolls and coffee, and drove to his mother's house to do a day of cleaning up. He recalls entering the house and feeling sweaty and dizzy. That is the last thing he remembers until he woke up on the [facility] floor in Room 221. He has no recollection of his friend bringing him to the hospital, no recollection of being in the ED. He denies experiencing chest pain, palpitations, SOB, SENA. He exercises 3-4 x per week, 30 minutes on bike and light weights. No decrease in exercise tolerance. No orthopnea or lower extremity edema. No calf pain or tenderness. ED course 1. in AF/Aflutter on monitor 2. 6mg Adenosine adninistered, HR with transient drop to 120s 3. 10mg Dilt followed by an additional 10mg dilt with resolution of HR to the 80s with continued atrial flutter on the monitor Subsequent hospital course 63 year-old male with a PMH significant for HTN. Admitted for aflutter with RVR , hypertensioin, and bilateral DVTs. Aflutter with RVR --ECG on admission showed aflutter @ 163bpm --reverted to sinus rhythm after adenosine and diltiazem; continued on cardizem CD 120mg --[id number] score 3, moderate to high risk; continued Eliquis Hypertension --BP remained elevated on home regimen anti-hypertensives, 180s/100s; --losartan was changed to valsartan 320mg daily, HCTZ was changed to chlothalidone 25mg daily with improvement in BP Bilateral DVTs --three years ago diagnosed with DVT; treated by Dr. Sims, was on Eliquis x several months --US on this admission showed bilateral DVTs without reference to chronicity --seen and evaluated by vascular Dr. Sims, continue Eliquis with outpatient followup --seen and evaluated by heme Dr. Aurelia Mccarthy: would consider indefinite anticoagulation presuming this new, unprovoked thromboses occured at some point between the last duplex and present; obesity may be risk factor; outpatient followup --due for colonoscopy in 3 months Minutes to complete discharge: 35 Discharge Summary Reason For Visit: ATRIAL FLUTTER Current Active Problems Atrial flutter with rapid ventricular response (Acute) HTN (hypertension) (Acute) Prophylactic measure (Acute) Condition: Stable - Instructions Diet, Activity, Other Instructions: Five prescriptions have been sent to your pharmacy. 1. Eliquis 10mg 2. Eliquis 5 mg (start after you finish the 10mg pills) 3. Chlorthalidone 4. Diltiazem 5. Valsartan STOP TAKING the combination losartan/HCTZ pill. It is important you follow up with your primary care provider, Dr. Gtz, cardioloigst Dr. Malhotra, and vascular surgeon Dr. Sims. Return to the emergency department for any new or worsening symptoms. Referrals: Riaz Sims MD [Staff Physician] - Disposition: HOME - Home Medications Comprehensive Discharge Medication List: Ambulatory Orders Losartan/Hydrochlorothiazide [Losartan-Hctz 50-12.5 mg Tab] 1 each PO DAILY This patient is new to me today: No Emergency Visit: Yes ED Registration Date: 04/11/19 Care time: The patient presented to the Emergency Department on the above date and was hospitalized for further evaluation of their emergent condition. Critical Care patient: No - Discharge Referral Referred to [facility] Med P.C.: No
[2019-04-14 14:07] LABS: HOMOCYSTINE-PLASMA OR SERUM 10.4 umol/L (0.0-15.0)
--- NOTE | 2019-04-14 15:12 | PN ---
Progress Note, Physician Chief Complaint: CTA negative In sinus No CP or SOB Found to have b/l DVTs. HEME input noted - Current Medication List Current Medications: Active Medications Acetaminophen (Tylenol -) 650 mg PO Q6H PRN PRN Reason: PAIN LEVEL 1-5 Last Admin: 04/13/19 17:10 Dose: 650 mg Apixaban (Eliquis -) 10 mg PO BID [facility] Stop: 04/18/19 23:00 Last Admin: 04/14/19 09:16 Dose: 10 mg Chlorthalidone (Hygroton -) 25 mg PO DAILY [facility] Last Admin: 04/14/19 09:16 Dose: 25 mg Diltiazem HCl (Cardizem Cd -) 120 mg PO DAILY [facility] Last Admin: 04/14/19 09:16 Dose: 120 mg Valsartan (Diovan -) 320 mg PO DAILY [facility] Last Admin: 04/14/19 09:16 Dose: 320 mg - Objective Vital Signs: Vital Signs Temperature 97.6 F 04/14/19 14:30 Pulse Rate 66 04/14/19 14:30 Respiratory Rate 18 04/14/19 14:30 Blood Pressure 164/98 04/14/19 14:30 O2 Sat by Pulse Oximetry (%) 95 04/14/19 14:30 Constitutional: Yes: No Distress, Calm Cardiovascular: Yes: Regular Rate and Rhythm Respiratory: Yes: CTA Bilaterally Gastrointestinal: Yes: Soft Edema: No Neurological: Yes: Alert, Oriented Labs: CBC, BMP 04/14/19 07:20 04/14/19 07:20 INR, PTT INR 1.15 (0.82-1.09) 04/11/19 10:10 Laboratory Tests 04/13/19 04/14/19 04/14/19 07:12 07:20 07:20 WBC 8.0 Hgb 16.6 Plt Count 225 Sodium 141 Potassium 4.3 Creatinine 0.6 Anti-Cardiolipin IgG Ab Pending Anti-Cardiolipin IgA Ab Pending Anti-Cardiolipin IgM Ab Pending Prothrombin [id number] Mut Pending - ....Imaging EKG: Image Reviewed Assessment/Plan New onset AFLUTTER, now reverted to NSR [id number] score = 1 (HTN) Chronic LLE edema with bilateral DVTs , unclear precipitant (CTA neg PE) HTN REC: 1. Continue AC as per Heme for DVTS and for PAF. 2. Agree likely needs AC indefinitely; hypercoag w/u pending. 3. Needs close outpt f/u of BP for med titration 4. Advise cardio f/u as outpt 1-2 weeks for BP and further comprehensive CV risk assessment.
[2019-04-14 17:32] VITALS: BP 150/72; PULSE 63; TEMP 98.6
[2019-04-14] MEDS ORDERED: ACETAMINOPHEN/CAFFEINE/BUTALBITAL 1 TAB PO ONE (18:27)
[2019-04-14] MEDS ORDERED: APIXABAN 5 MG TABLET PO STA (18:27)
== END 2019-04-14 18:43 | disposition home or self-care (01) | DRG 310 ==
LOC: FER 09:30 → FM/S 11:20 → UNDOADMIN 12:55 → FM/S 04-13 14:46
PROVIDERS: ADMIT Internal Medicine; ATTEND Nurse Practitioner Acute Care
DX: I48.92 Unspecified atrial flutter (principal); I10 Essential (primary) hypertension; E66.8 Other obesity; Z68.36 Body mass index [BMI] 36.0-36.9, adult; Z86.718 Personal history of other venous thrombosis and embolism
CPT/HCPCS: 36415; 71045-TC-FY; 71275-TC; 80053; 81240; 81241; 82550; 82962; 83090; 83735; 84443; 84484; 85025; 85027; 85307; 85610; 85730; 93005; 93306-TC; 93970-TC; 99285-25; J7030